=== PATIENT | female | born 1960 | race Caucasian/White ===

== ENCOUNTER → 2017-03-25 | Outpatient (CLI) | payer MEDICARE, OTHER ==
[~2017-03-25] MED LIST: AMOX TR-K CLV1 EAC2 PO; BACTRIM DS TAB1 EACH PO; CIPRO500 MG PO; FENTANYL CITRATE/PF 100MCG/2 ML INJ ONE; GABAPENTIN400 MG PO; HUMALOG100 UNIT/1; LANTUS100 UNITS/ SC; LOSARTAN POTASS25 MG PO; MELOXICAM15 MG PO; METFORMIN HCL500 MG PO; MIDAZOLAM HCL 2 MG/2 ML VIAL ONE; MIRAPEX0.125 MG PO; RIFAMPIN300 MG PO; SIMVASTATIN20 MG PO; SODIUM CHLORIDE 0.9% 500ML 1,000 ML ONE
--- NOTE | 2017-03-25 12:43 | Diagnostic Imaging Report ---
EXAMINATION: MRI of the cervical spine without contrast HISTORY: Cervical spinal canal stenoses, numbness in the upper extremities/hands for over a year COMPARISON: Cervical spine MRI and 05/13/2015 TECHNIQUE: Sagittal T1, T2, STIR; axial T2, gradient echo. FINDINGS: Curvature: Normal lordosis. Vertebrae: No evidence of neoplasm, infection, or fracture. Foramen magnum: No mass, Chiari malformation, or basilar invagination. Spinal Cord: Subtle increased T2 signal intensity within the cord extending from superior endplate of C5 to mid C7 due to severe canal stenosis and chronic cord compression, worsened since prior MRI and 05/13/2015 Soft Tissues: Unremarkable. Degenerative changes: C1-C2: Mild degenerative changes without stenoses C2-C3: Bilateral facet arthrosis without significant stenoses. Fusion of the posterior elements on the right side. C3-C4: Disc osteophyte, uncovertebral and facet arthrosis. Moderate spinal canal and severe left foraminal stenosis. Mild right foraminal stenoses C4-C5: Disc was 25 compare formation, bilateral uncovertebral and facet arthrosis. Mild spinal canal, mild right and severe left foraminal stenoses C5-C6: Disc osteophyte complex formation, bilateral uncovertebral and facet arthrosis. Moderate spinal canal and moderate bilateral foraminal stenoses C6-C7: Disc osteophyte complex formation and new approximately 5 mm AP diameter central disc protrusion, which results in severe spinal canal stenoses and or compression. Additional bilateral uncovertebral and facet arthrosis results in severe bilateral foraminal stenoses. C7-T1: Mild symmetric disc bulge and facet arthrosis without significant stenoses. IMPRESSION: 1. Worsening severe spinal canal stenoses at C6-C7 due to degenerative changes and new disc herniation with likely chronic cord compression and increased signal within the cord, which likely explains the patient's symptoms. A neurosurgery or orthopedic consult is advised. 2. Persistent severe degenerative bilateral foraminal stenosis at C6-7. 3. Mild to moderate degenerative spinal canal stenosis at C3-C4, C4-C5 and C5-C6. 4. Severe degenerative foraminal stenosis on the left at C3-C4 and C4-C5 and moderate bilaterally at C5-C6. Signed by: Dr. Kayce Morton M.D. on 03/25/2017 12:40 PM
== END ==
LOC: MRI 09:42
PROVIDERS: ATTEND Psychiatry & Neurology Clinical Neurophysiology
DX: M48.02 Spinal stenosis, cervical region (principal)
CPT/HCPCS: 36415; 72141; 82948; J2250; J7040

== ENCOUNTER → 2018-03-29 | Outpatient (CLI) | payer MEDICARE, OTHER ==
[~2018-03-29] MED LIST changes: +LIDOCAINE HCL 2% LOCAL INJ 5 ML SDV VIAL INJ ONE; +PROPOFOL IV EMULSION 10 MG/ML 20 ML VIAL ONE
--- NOTE | 2018-03-29 15:26 | Diagnostic Imaging Report ---
Exam: Cervical spine MRI without IV contrast History: Chronic neck pain Comparison studies: Cervical spine MRI 03/25/2017, 05/13/2015 and 12/11/2013. Technique: Sagittal and axial T1 and T2, sagittal STIR and axial T2*GRE. Intravenous contrast: None Findings: Alignment: Normal lordosis. No scoliosis. Cervicomedullary junction: No abnormalities. Patent foramen magnum. Soft tissues: No T2 hyperintense inflammatory changes. Spinal cord: Cord is focally compressed at C6-C7 due to degenerative canal stenosis as described below with persistent increased T2 signal changes in the cord from C5 to approximately mid C7, unchanged from 03/25/2017. Vertebrae: No fractures, infection or neoplasm. Degenerative changes: C2-C3: Mildly degenerated disc. Bilateral facet arthrosis with right facet fusion. No significant foraminal stenosis. Patent canal. C3-C4: Mildly degenerated disc. Disc osteophyte complex, thickened ligamentum flavum, uncovertebral arthrosis and facet arthrosis with moderate canal stenosis and severe left and mild right foraminal stenosis. C4-C5: Mildly degenerated disc. Disc osteophyte complex, thickened ligamentum flavum, uncovertebral arthrosis and facet arthrosis with mild to moderate canal stenosis and severe left and mild right foraminal stenosis. C5-C6: Moderately degenerated disc with mild reactive degenerative endplate edema. Disc osteophyte complex, uncovertebral arthrosis and facet arthrosis with mild to moderate canal canal stenosis and moderate left and mild right foraminal stenosis. C6-C7: Moderately degenerated disc with mild reactive degenerative endplate edema. 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 Uncovertebral facet arthrosis result in severe bilateral foraminal stenosis. C7-T1: Mild bilateral facet arthrosis. Patent canal and foramina. Incidental findings: Chronic inflammatory changes at the right mastoid tip. IMPRESSION: No significant changes from the prior cervical spine MRI of 03/25/2017. 1. Multilevel disc degeneration, worse/moderate at C5-C6 and at C6-C7. 2. Persistent severe degenerative canal stenosis and cord compression at C6-C7 where there is a central disc extrusion and OPLL superior to the disc space with associated chronic cord signal changes. 3. Moderate degenerative canal stenosis at C3-C4 and mild to moderate canal stenosis at C4-C5 and at C5-C6. 4. Multilevel degenerative foraminal stenosis; severe left at C3-C4 and at C4-C5, moderate left at C5-C6 and severe bilaterally at C6-C7. Signed by: Dr. Vance Seay M.D. on 03/29/2018 3:22 PM
== END ==
LOC: MRI 12:00
PROVIDERS: ATTEND Psychiatry & Neurology Clinical Neurophysiology
DX: M48.02 Spinal stenosis, cervical region (principal)
CPT/HCPCS: 72141; J2001; J2250; J2704; J7040

== ENCOUNTER → 2019-04-11 | Outpatient (CLI) | payer MEDICARE, OTHER ==
[~2019-04-11] MED LIST changes: -FENTANYL CITRATE/PF 100MCG/2 ML INJ ONE; -LIDOCAINE HCL 2% LOCAL INJ 5 ML SDV VIAL INJ ONE; -MIDAZOLAM HCL 2 MG/2 ML VIAL ONE; -PROPOFOL IV EMULSION 10 MG/ML 20 ML VIAL ONE; -SODIUM CHLORIDE 0.9% 500ML 1,000 ML ONE
== END ==
LOC: MAMMO 10:45
PROVIDERS: ATTEND Radiology Body Imaging
DX: Z12.31 Encounter for screening mammogram for malignant neoplasm of breast (principal)
CPT/HCPCS: 77067

== ENCOUNTER 2019-10-01 11:50 | Emergency (ER) | payer OTHER ==
[~2019-10-01] VITALS: Ht 167.6 cm; Wt 84.8 kg
--- OUTSIDE RECORDS SUMMARY | 2019-10-01 12:04 | XMS REPORT ---
Author Author Admin, Joselin Saenz Organization Unknown Address Unknown Phone Unavailable PROBLEMS Condition Status Date Provider Notes Smoker active Antonio Tinsley BMI 37.0-37.9 active Ismael Mcgee Poor dentition active Antonio Tinsley Diabetic peripheral neuropathy active Antonio arevalo Diabetes mellitus, type II active Antonio mendoza ENCOUNTERS Date Type Provider Location Encounter Diagn osis - Ambulatory Encounter Renee Ortiz [facility] UNK - [facility] - [facility] Encounter Antonio Tinsley [facility] UNK - Ambulatory [facility] - [facility] Ambulatory Encounter Antonio Tinsley [facility] UNK - [facility] - [facility] - Ambulatory Encounter Antonio Tinsley [facility] UNK - Ambulatory Encounter Antonio Guevara Mcgee Renustefan Mcgee [facility] Smoker - Ambulatory [facility] - Ambulatory Encounter Antonio Tinsley [facility] K - Ambulatory Encounter Antonio Smith [facility] UNK - [facility] Antonio Guevara Mcgee [facility] BMI 37.0-37.9 - [facility] En[facility] Antonio Tinsley [facility] K - Ambulatory Encounter Angi Angel [facility] Practice K - Ambulatory Encounter Antonio Guevara Mcgee [facility] Practice Diabetes mellitus, type IIDiabetic peripheral neuropathyPoor dentition VITAL SIGNS No Information Available ALLERGIES Allergy Name Onset Date Reaction Criticality Status ZOFRAN High Criticality active REASON FOR REFERRAL No Information Available RESULTS Date Observation Value Provider Reference Range Interpretati on Location immature granulocytes, percentage of total cells , blood 0 % [facility] Not Estab. " basophil count, absolute 0.0 x10E3/uL [facility] 0.0-0.2 " Eosinophil Absolute Count 0.5 X10E3/UL [facility] 0.0-0.4 High " monocyte count, blood, automated 0.4 X10E3/UL [facility] 0.1 -0.9 " lymphocyte count, blood, automated 2.6 X10E3/UL [facility] 0 .7-3.1 " Absolute Neutrophils 4.4 X10E3/UL [facility] 1.4-7.0 " basophils as percent of blood leukocytes 0 % [facility] Not Estab. " eosinophils as percent of blood leukocytes 6 % [facility] Not Estab. " monocytes as percent of blood leukocytes 5 % [facility] Not Estab. " lymphocytes as percent of blood leukocytes 33 % [facility] Not Estab. " neutrophils as percent of blood leukocytes 56 % [facility] Not Estab. " platelet count 221 X10E3/UL [facility] 150-379 " red blood cell distribution width 14.7 % [facility] 12.3- 15.4 " mean corpuscular hemoglobin concentration, RBC 31.9 G/DL [facility] 31.5-35.7 " mean corpuscular hemoglobin, RBC 27.3 pg [facility] 26.6-3 3.0 " mean corpuscular volume, RBC 86 fL [facility] 79-97 " hematocrit, blood 34.8 % [facility] 34.0-46.6 " hemoglobin, blood 11.1 g/dL [facility] 11.1-15.9 " erythrocyte (RBC) count 4.07 X10E6/UL [facility] 3.77-5.28 " leukocyte count, blood 7.9 X10E3/UL [facility] 3.4-10.8 prothrombin time (patient) 10.0 s [facility] 9.1-12.0 " international normalized ratio (INR) 1.0 [facility] 0. 8-1.2 " alanine aminotransferase (SGPT), serum 11 1/L [facility] 0-32 " aspartate aminotransferase (SGOT), serum 17 1/L [facility] 0-40 " alkaline phosphatase, serum 95 1/L [facility] 39-117 " bilirubin, serum, total 0.3 mg/dL [facility] 0.0-1.2 " albumin/globulin ratio, serum 1.3 [facility] 1.2-2.2 " globulin, serum 3.2 [facility] 1.5-4.5 " albumin, serum 4.0 g/dL [facility] 3.5-5.5 " protein, total, serum 7.2 g/dL [facility] 6.0-8.5 " calcium, serum 9.3 mg/dL [facility] 8.7-10.2 " carbon dioxide, venous blood 26 mmol/L [facility] 18-29 " chloride, serum 100 mmol/L [facility] 96-106 " potassium, serum 4.6 mmol/L [facility] 3.5-5.2 " sodium, serum 142 mmol/L [facility] 134-144 " urea nitrogen/creatinine ratio, serum 21 [facility] 9 -23 " eGFR if 99 mL/min/((173/100).m2) [facility] >59 " Estimated Glomerular Filtration Rate (calc) 86 m L/min/((173/100).m2) [facility] >59 " creatinine, serum 0.78 mg/dL [facility] 0.57-1.00 " urea nitrogen, blood 16 mg/dL [facility] 6-24 " blood glucose, random 144 mg/dL [facility] 65-99 High " immature granulocytes, percentage of total cells, bloo d 0 % [facility] Not Estab. " basophil count, absolute 0.0 x10E3/uL [facility] 0.0-0.2 " Eosinophil Absolute Count 0.4 X10E3/UL [facility] 0.0-0.4 " monocyte count, blood, automated 0.4 X10E3/UL [facility] 0.1 -0.9 " lymphocyte count, blood, automated 2.2 X10E3/UL [facility] 0 .7-3.1 " Absolute Neutrophils 3.4 X10E3/UL [facility] 1.4-7.0 " basophils as percent of blood leukocytes 0 % [facility] Not Estab. " eosinophils as percent of blood leukocytes 7 % [facility] ic Not Estab. " monocytes as percent of blood leukocytes 6 % [facility] Not Estab. " lymphocytes as percent of blood leukocytes 34 % [facility] Not Estab. " neutrophils as percent of blood leukocytes 53 % [facility] ic Not Estab. " platelet count 225 X10E3/UL [facility] 150-379 " red blood cell distribution width 15.4 % [facility] 12.3- 15.4 " mean corpuscular hemoglobin concentration, RBC 32.0 G/DL [facility] 31.5-35.7 " mean corpuscular hemoglobin, RBC 26.8 pg [facility] 26.6-3 3.0 " mean corpuscular volume, RBC 84 fL [facility] 79-97 " hematocrit, blood 35.6 % [facility] 34.0-46.6 " hemoglobin, blood 11.4 g/dL [facility] 11.1-15.9 " erythrocyte (RBC) count 4.26 X10E6/UL [facility] 3.77-5.28 " leukocyte count, blood 6.4 X10E3/UL [facility] 3.4-10.8 HISTORY OF IMMUNIZATIONS No Information Available Medications No Known Medication Information SOCIAL HISTORY Date Observation Value Provider Exercise Program Referral T Renu Mcgee " Weight Management Counseling Provided T " Nutrition intervention T " passive cigarette smoke exposure No Debora Mcgee " drug use, illicit Never Deborath Gerardo dos " smoking status current every day smoker Deborat h Mcgee " alcohol use Never Deborath Shaun s " social history reviewed E&M reviewed today Julieta rath Mcgee " is there any chance that you could be ? No Debora Mcgee " assessment of health literacy ([facility] 3C10) Adequate Debora Mcgee Exercise Program Referral T Renu Mcgee " Weight Management Counseling Provided T Deb Mcgee " Nutrition intervention T " drug use, illicit Never Deborath Gerardo dos " alcohol use Never Deborath Shaun s " social history reviewed E&M reviewed today Julieta rath Mcgee " is there any chance that you could be ? No Debora Mcgee " assessment of health literacy ([facility] [address] [facility], 3C10) Adequate Debora Mcgee " passive cigarette smoke exposure No Deb Mcgee " smoking status current every day smoker Deborat h Mcgee drug use, illicit Never Deborath Gerardo dos " alcohol use Never Deborath Shaun s " social history reviewed E&M reviewed today Julieta rath Mcgee " is there any chance that you could be ? No Debora Mcgee " passive cigarette smoke exposure No Deborath Mcgee " smoking status current every day smoker Deborat h Mcgee " assessment of health literacy ([facility] 2013 [facility], 3C10) Adequate Deborath Mcgee Exercise Program Referral T Renu Mcgee " Weight Management Counseling Provided T Avril[place]ada Mcgee " Nutrition intervention T [place] " drug use, illicit Never [place] Gerardo dos " alcohol use Never [place] Shaun s " Occupation #1 Disabled Avrilaguadastefan Mustafaado s " patient considered to be homeless No [facility] Mcgee " is there any chance that you could be ? No Avrilaguada Mcgee " passive cigarette smoke exposure No [facility] " smoking, advice to quit Yes Avrilaguadastefan Mcgee " smoking status current every day smoker Renut h Mcgee " assessment of health literacy ([employer] [facility] [address], 3C10) Adequate [facility] FUNCTIONAL STATUS No Information Available MENTAL STATUS Date Observation Value Provider assessment of judgment and insight E&M intact Antonio Tinsley " mental status examination: orientation E &M oriented to time, place, and person Antonio Tinsley " assessment of mood and affect E&M no depression, anxiety, or agitation Antonio Tinsley " Generalized Anxiety Disorder Questionnaire - Que stion 2 0 [facility] " Generalized Anxiety Disorder Questionnaire - Que stion 1 0 [facility] assessment of judgment and insight E&M intact Antonio Tinsley " mental status examination: orientation E &M oriented to time, place, and person Antonio Tinsley " assessment of mood and affect E&M no depression, anxiety, or agitation Antonio Tinsley " Generalized Anxiety Disorder Questionnaire - Que stion 2 0 [facility] " Generalized Anxiety Disorder Questionnaire - Que stion 1 0 [facility] assessment of judgment and insight E&M intact Antonio Tinsley " mental status examination: orientation E &M oriented to time, place, and person Antonio Arash Tinsley " assessment of mood and affect E&M no depression, anxiety, or agitation Antonio Tinsley " Generalized Anxiety Disorder Questionnaire - Que stion 2 0 [facility] " Generalized Anxiety Disorder Questionnaire - Que stion 1 0 [facility] assessment of judgment and insight E&M intact Antonio Tinsley " mental status examination: orientation E &M oriented to time, place, and person Antonio Arash Tinsley " assessment of mood and affect E&M no depression, anxiety, or agitation Antonio Tinsley " Generalized Anxiety Disorder Questionnaire - Que stion 2 0 [facility] " Generalized Anxiety Disorder Questionnaire - Que stion 1 0 Ismael Mustafaados MEDICAL EQUIPMENT No Information Available FAMILY HISTORY No Information Available INSURANCE PROVIDERS No Information Available ADVANCE DIRECTIVES No Information Available TREATMENT PLAN Date Name CBC With Differential/Platel et Comp. Metabolic Panel (14) CBC With Differential/Platel et Prothrombin Time (PT) with I NR Est Patient Exp Problem - 99 213 Est Patient Exp Problem - 99 213 Est Patient Exp Problem - 99 213 Est Patient Exp Problem - 99 213 HISTORY OF PROCEDURES No Information Available GOALS No Information Available HEALTH CONCERNS No Information Available
--- OUTSIDE RECORDS SUMMARY | 2019-10-01 12:04 | XMS REPORT | Continuity of Care Document ---
Author Author [facility] t Organization [facility] Address [address] [place] [address] Phone Unavailable Care Team Providers Care Music Therapy Specialist Name Role Phone AWA LOUIS Attphys Unavailable Renee Bowman Attphys Angel MedShraddha Maier Attphys Arash [place] Attphys Everardo Deborath Attphys Unavailable RONNIE MATA Attphys Unavailable Angi Ortiz Attphys Unavailable Arash Tinsley Unavailable Ismael Mcgee Unavailable Unavailable Problems Condition Name Condition Details Condition Category Status Onset Date Resolution Date Last Treatment Date Treating Clinician Comments Source Smoker Condition Active 2017-10-15 00:00:00 2017-10-15 11:43:47 Antonio Tinsley [facility] BMI 37.0-37.9 Condition Active 2017-05-28 00:00:00 2017 13:58:15 Ismael Mcgee [facility] Poor dentition Condition Active 2017-04-19 00:00:[address] [facility] 09-23-25 15:31:57 Antonio Tinsley [facility] Diabetic peripheral neuropathy Condition Active 2017-03-26 00:00:00 2017-04-19 15:31:57 Antonio Tinsley [facility] Diabetes mellitus, type II Condition Active 2017-04-19 00 :00:00 2017-04-19 15:31:57 Antonio Tinsley [facility] Migraine with aura, without mention of i ntractable migraine without mention of status migrainosus Migraine with aura, without mention of i ntractable migraine without mention of status migrainosus Disease Active 2014-04-30 00:00:00 [facility] Type II or unspecified type diabetes narayan litus with ophthalmic manifestations, not stated as uncontrolled(250.50) Type II or unspecified type diabetes narayan litus with ophthalmic manifestations, not stated as uncontrolled(250.50) Disease Active 2014-04-30 00:00:00 [facility] Status post amputation of toe of right foot Status pos t amputation of toe of right foot Disease Active 2012-03-13 00:00:00 [facility] Diabetic retinopathy Diabetic retinopathy Disease Active 00:00:00 [facility] Traumatic amputation of toe(s) (complete ) (partial), without mention of complication Traumatic amputation of toe(s) (complete ) (partial), without mention of complication Disease Active 2012-03-05 00:00:00 [facility] Occluded PICC line Occluded PICC line Disease Active 2012-02-16 00:00:0 0 [facility] Diabetes mellitus with ulcer of toe Diabetes mellitus with ulcer of toe Disease Active 2012-01-19 00:00:00 [facility] Type II or unspecified type diabetes narayan litus with neurological manifestations, uncontrolled(250.62) Type II or unspecified type diabetes narayan litus with neurological manifestations, uncontrolled(250.62) Disease Active 2012-01-09 00:00:00 [facility] Osteomyelitis of foot Osteomyelitis of foot Disease Active 04-04-13 00:00:00 [facility] S/P PICC central line placement S/P PICC central line placement Dis ease Active 2012-01-05 00:00:00 [facility] Wound, open, foot with complication Wound, open, foot with compl ication Disease Active 2011-12-30 00:00:00 [facility] Avascular necrosis Avascular necrosis Disease Active 2011-06-19 00:00:0 0 [facility] Charcot foot due to diabetes mellitus Charcot foot due to di abetes mellitus Disease Active 2010-12-26 00:00:00 [facility] Diabetic neuropathy Diabetic neuropathy Disease Active 2010-06-13 00:00 :00 [facility] Diabetic foot ulcer Diabetic foot ulcer Disease Active 2010-06-13 00:00 :00 [facility] Uterine cancer Uterine cancer Disease Active 2008-11-21 00:00:00 Overview: Diagnosed at outside institution..stage unclear [facility] Personal history of ovarian cancer Personal history of ovarian c ancer Disease Active 2008-11-21 00:00:00 Overview : Diagnosed outside institution...stage unclear [facility] Tobacco use disorder Tobacco use disorder Disease Active 00:00:00 [facility] HTN (hypertension) HTN (hypertension) Disease Active [facility] Obesity Obesity Disease Active [facility] Nausea & vomiting Nausea & vomiting Disease Active Overview: CT= [facility] Allergies, Adverse Reactions, Alerts Allergy Name Allergy Type Status Severity Reaction(s) Onset Date Inacti ve Date Treating Clinician Comments Source ZOFRAN Drug allergy (disorder) Active High Criticality 2017-03 00:00:00 [facility] Ondansetron Hcl (Pf) Propensity to adverse reactions to drug Active Nausea and Vomiting 2008-11-21 00:00:00 dizziness [facility] Family History Family Member Diagnosis Comments Start Date Stop Date Source Natural brother [facility] Natural father [facility] Natural [facility] Natural father [facility]pertension [facility] Maternal grandmother [facility] Natural mother [facility] Natural mother [facility] Natural mother Hypertension [facility] Natural mother Stroke [facility] Social History Social Habit Start Date Stop Date Quantity Comments Source History of tobacco use Cigarette Smoker [facility] Sex Assigned At [facility] drug use, illicit 2018-04-12 11:49:40 2018-04-12 11:49:40 Never [facility] alcohol use 2018-04-12 11:49:40 2018-04-12 11:49:40 Never [facility] is there any chance that you could be ? 2018-04-12 1 1:49:40 2018-04-12 11:49:40 No [facility] passive cigarette smoke exposure 2018-04-12 11:49:40 2018-04-12 11:49 :40 No [facility] assessment of health literacy ([employer] [facility] 2014 Standard s, 3C10) 2018-04-12 11:49:40 2018-04-12 11:49:40 Adequate On license of [facility] social history reviewed E&M 2018-04-12 11:49:40 2018-04-12 11:49 :40 reviewed today [facility] Occupation #1 2017-04-19 14:10:16 2017-04-19 14:10:16 Disabled [facility] patient considered to be homeless 2017-04-19 14:10:16 2017-04-19 14:1 0:16 No [facility] smoking, advice to quit 2017-04-19 14:10:16 2017-04-19 14:10:16 Yes [facility] Cigarettes smoked current (pack per day) - Reported 00:00:00 2014-08-23 00:00:00 [facility] Cigarette pack-years 2014-08-23 00:00:00 2014-08-23 00:00:00 [facility] Alcohol intake 2014-08-23 00:00:00 2014-08-23 00:00:00 Current non-drinker of alcohol (finding) [facility] Tobacco Comment 2008-11-21 00:00:00 2008-11-21 00:00:00 STARTED SMOKING AT 10YEARS OF AGE decreased 1/2ppd X 05/31, from 2-3ppd [facility] Smoking Status Start Date Stop Date Source Current every day smoker 2014-08-23 00:00:00 [facility] Medications Ordered Medication Name Filled Medication Name Start Date Stop Da te Current Medication? Ordering Clinician Indication Dosage Frequency Signature (SIG) Comments Components Source insulin lispro (HUMALOG) 100 unit/mL injection 2014-08-10 10:23: 38 Yes 20U Inject 20 Units under the skin 3 times daily. [facility] insulin glargine (LANTUS) 100 unit/mL injection 2014-08-10 10:23 :38 Yes 60U Inject 60 Units under the skin at bedtime nightly. [facility] metFORMIN (GLUCOPHAGE) 500 mg tablet 2014-08-10 10:23:38 Ye s 1000mg Take 1,000 mg by mouth 2 times daily (with meals). [facility] Miscellaneous Medical Supply Misc 2014-08-10 00:00:00 Yes Wound, open, foot with complication Patient needing m otorized scooter for mobility as she is to take weight off her right foot with non healing ulcer. [facility] mupirocin (BACTROBAN) 2 % ointment 2014-08-10 00:00:00 Yes Diabetic foot ulcer Apply a small amount to wound daily and cover w ith gauze. [facility] rifampin (RIFADIN) 300 mg capsule 2014-06-27 00:00:00 Yes Chronic osteomyelitis of foot 600mg QD Take 2 capsules by mouth daily. [facility] Insulin REGULAR CONCENTRATED (HUMULIN R CONCENTRATED) 500 un it/mL injection 2013-07-20 00:00:00 Yes Use 43 units in am and 40 units at night. [facility] Cadexomer Iodine (IODOSORB) 0.9 % topical gel 2013-05-05 00: 00:00 Yes Diabetic foot ulcer Apply to affected area daily as needed for Wound Care. [facility] insulin needles, disposable, (NOVOFINE) 30 x 1/3 " needles 2013-04-27 00:00:00 Yes DM (diabetes mellitus), type 2, uncontro lled 4{syringe} QD Inject 4 Syringes under the skin daily Inject subcutaneously. Twice daily. [facility] acetaminophen-codeine (TYLENOL #3) 300-30 mg per tablet 2013-04-27 00:00:00 Yes Diabetic foot ulcer with osteomyelitis 1{tbl} Take 1 tablet by mouth every 4 hours as needed for Pain. [facility] nortriptyline (PAMELOR) 25 mg capsule 2013-04-04 00:00:00 Yes Diabetic neuropathy 25mg Take 1 capsule by mouth at bedtime nightly. [facility] glyBURIDE-metFORMIN (GLUCOVANCE) 5-500 mg per tablet 2 00:00:00 Yes DM (diabetes mellitus) 2{tbl} Take 2 tablets by mouth 2 times daily (with meals). [facility] CAPSAICIN 0.025 % topical cream 2013-03-07 00:00:00 Yes Diabetic neuropathy Apply up to 4 times day. [facility] pramipexole (MIRAPEX) 0.125 mg tablet 2013-03-07 00:00:00 Yes Diabetic neuropathy .125mg Take 1 tablet by mouth at bedtime. [facility] Cadexomer Iodine (IODOSORB) 0.9 % topical gel 2013-03-07 00: 00:00 Yes Diabetic foot ulcer Apply to affected area daily as needed for Wound Care. [facility] gemfibrozil (LOPID) 600 mg tablet 2013-03-07 00:00:00 Yes HLD (hyperlipidemia) 600mg Q.5D Take 1 tablet by vibha th 2 times daily (before meals). [facility] ergocalciferol (VITAMIN D2) 50,000 unit capsule 2013-03-07 0 0:00:00 Yes Vitamin D deficiency 71545U Take 1 capsule by mouth weekly. [facility] blood glucose test strips 2013-03-07 00:00:00 Yes DM (diabetes mellitus) Check BG 4 times weekly. [facility] omeprazole (PRILOSEC) 20 mg delayed release capsule 03-07 00:00:00 Yes GERD (gastroesophageal reflux disease) 40mg Q.5D Take 2 capsules by mouth 2 times daily. [facility] gabapentin (NEURONTIN) 300 mg capsule 2013-03-07 00:00:00 Yes Diabetic neuropathy 1 po tid. [facility] lisinopril (PRINIVIL, ZESTRIL) 20 mg tablet 2013-03-07 00:00 :00 Yes HTN (hypertension) 20mg QD Take 1 tablet by mouth daily. [facility] simvastatin (ZOCOR) 20 mg tablet 2013-03-07 00:00:00 Yes HLD (hyperlipidemia) 20mg Take 1 tablet by mouth at bedtime. [facility] furosemide (LASIX) 20 mg tablet 2013-03-07 00:00:00 Yes Edema 20mg QD Take 1 tablet by mouth daily. [facility] LANCETS 2013-03-07 00:00:00 Yes Uncontrolled type II diabetes mellitus Use as Directed. [facility] blood glucose test (PRECISION XTRA TEST STRIPS) strips 2013-03-07 00:00:00 Yes Uncontrolled type II diabetes mellitus Use as di rected.. [facility] blood glucose meter 2012-12-13 00:00:00 Yes DM (d iabetes mellitus) Use as directed. [facility] HYDROcodone-acetaminophen (NORCO) 5-325 mg tablet 2012-11-23 00:00:00 Yes Osteomyelitis 1{tbl} Take 1 tablet by mouth every 4 h ours as needed for Pain. [facility] Immunizations Ordered Immunization Name Filled Immunization Name Date Status Comments Source Influenza Vaccine 2011-10-24 00:00:00 Completed [facility] Influenza Vaccine 2010-11-16 00:00:00 Completed [facility] Influenza Vaccine 2008-03-25 00:00:00 Completed [facility] PPV 23 Pneumococcal Polysaccaride 2008-01-22 00:00:00 Comp leted [facility] Td Tetanus, diphtheria Toxoids Vaccine 2005-11-21 00:00:00 Completed [facility] Procedures This patient has no known procedures. Plan of Care Planned Activity Planned Date Details Comments Source Future Scheduled Test 2019-04-23 00:00:00 Screening for aidan gnant neoplasm of colon (procedure) [code = 798891801] [facility] Scheduled Test 2015-05-01 00:00:00 DM Retinal Exam (Y early) [code = DM Retinal Exam (Yearly)] [facility] Scheduled Test 2014-04-27 00:00:00 Hemoglobin A1c jolynn surement (procedure) [code = 38152003] [facility] Scheduled Test 2013-11-07 00:00:00 Breast Cancer Scrn (Yearly) [code = Breast Cancer Scrn (Yearly)] [facility] Scheduled Test 2013-08-05 00:00:00 DM Foot Exam (Year ly) [code = DM Foot Exam (Yearly)] [facility] Encounters Start Date/Time End Date/Time Encounter Type Admission Type [facility] Care Department Encounter ID Source 2019-01-26 00:00:00 2019-01-26 00:00:00 Office Visit Renee Canales [facility] Encounter/[id number] [facility] 2018-09-14 00:00:00 2018-09-14 00:00:00 Office Visit Antonio Tinsley [facility] Encounter/[id number] [facility] 2018-06-15 00:00:00 2018-06-15 00:00:00 Office Visit Antonio Tinsley [facility] Encounter/[id number] [facility] 2018-04-13 00:00:00 2018-04-13 00:00:00 Office Visit Antonio Tinsley [facility] Encounter/[id number] [facility] 2018-04-12 00:00:00 2018-04-12 00:00:00 Office Visit Antonio Tinsley [facility] Encounter/[id number] [facility] 2018-04-12 00:00:00 2018-04-12 00:00:00 Office Visit Antonio Tinsley [facility] Encounter/[id number] [facility] 2018-04-12 00:00:00 2018-04-12 00:00:00 Office Visit Antonio Solo Deborath [facility] Encounter/[id number] [facility] 2018-01-25 00:00:00 2018-01-25 00:00:00 Office Visit [facility][id number] [facility] 2017-10-15 00:00:00 2017-10-15 00:00:00 Office Visit [facility] Encounter/[id number] [facility] 2017-10-15 00:00:00 2017-10-15 00:00:00 Office Visit Antonio Solo Deborath [facility] Encounter/[id number] [facility] 2017-06-29 00:00:00 2017-06-29 00:00:00 Office Visit Antonio Tinsley [facility] Encounter/[id number] [facility] 2017-06-08 00:00:00 2017-06-08 00:00:00 Office Visit Antonio Tinsley [facility] Encounter/[id number] [facility] 2017-05-28 00:00:00 2017-05-28 00:00:00 Office Visit Antonio Tinsley [facility] Encounter/[id number] [facility] 2017-05-28 00:00:00 2017-05-28 00:00:00 Office Visit Antonio Tinsley [facility] Encounter/[id number] [facility] 2017-05-28 00:00:00 2017-05-28 00:00:00 Office Visit Antonio Solo Deborath [facility] Encounter/[id number] [facility] 2017-04-19 00:00:00 2017-04-19 00:00:00 Office Visit Antonio Tinsley [facility] Encounter/[id number] [facility] 2017-04-19 00:00:00 2017-04-19 00:00:00 Office Visit Antonio [facility]insley [facility] Encounter/[id number] [facility] 2017-04-19 00:00:00 2017-04-19 00:00:00 Office Visit Angi Steiner [facility] Encounter/[id number] [facility] 2017-04-19 00:00:00 2017-04-19 00:00:00 Office Visit Antonio Solo Deborath [facility] Encounter/[id number] [facility] 2017-03-29 00:00:00 2017-03-29 00:00:00 Office Visit Antonio Tinsley [facility] Encounter/[id number] [facility] Results Test Description Test Time Test Comments Results Result Comments Source MAMMOGRAPHY DIGITAL SCR BILAT 2019-04-11 11:58:00 [place] [address] Patient Name: LAURA LUX MR #: [id number] : 1960 Age/Sex: 58/F Req #: [id number] Adm Physician: Ordered by: AWA LOUIS MD Report #: [id number] Location: MAMMO Room/Bed: Procedure: [id number] MG/MAMMOGRAPHY DIGITAL SCR BILAT Exam Date: 04/11/19 Exam Time: 1050 REPORT STATUS: Signed #[id number] - [id number] #BILATERAL DIGITAL SCREENING MAMMOGRAM WITH CAD: 04/11/2019 CLINICAL: Routine screening. No prior exams were available for comparison. The tissue of both breasts is heterogeneously dense. This may lower the sensitivity of mammography. Current study was also evaluated with a Computer Aided Detection (CAD) system. There are benign calcifications in both breasts. There also is a benign lymph node in the right breast. No significant masses, calcifications, or other findings are seen in either breast. IMPRESSION: BENIGN There is no mammographic evidence of malignancy. A 1 year screening mammogram is recommended. The patient will be notified by letter of the results. MAURICIO herny/rachel:04/25/2019 09:54:12 Brick Paver: Dorene RUTLEDGE(R)(M), [facility] letter sent: Normal Exam Mammogram BI-RADS: 2 Benign Dictated By: MAURICIO ORDOÑEZ MD 3 Transcribed By: RACHEL on 04/25/19953 COPY TO: AWA LOUIS MD immature granulocytes, percentage of total cells, blood 2018 14:36:00 Test Item immature granulocytes, percentage of total cells, bloo d (test code = 340332) 0 % [facility], [id number] 14:36:00* Test Item Value Reference Range Interpretation Comments basophil count, absolute (test code = 95235) 0.0 x10E3/uL 0.0-0.2 [facility] Absolute [id number] 14:36:00* Test Item Value Reference Range Interpretation Comments Eosinophil Absolute Count (test code = 049122) 0.5 X10E3/UL 0.0-0.4 H [facility]ocyte count, blood, [id number] 14:36:00* Test Item Value Reference Range Interpretation Comments monocyte count, blood, automated (test code = 3076) 0.4 X10E3/UL 0. 1-0.9 [facility] count, blood, [id number] 14:36:00* Test Item Value Reference Range Interpretation Comments lymphocyte count, blood, automated (test code = 3074) 2.6 X10E3/UL 0.7-3.1 [facility] [id number] 14:36:00* Test Item Value Reference Range Interpretation Comments Absolute Neutrophils (test code = 12152) 4.4 X10E3/UL 1.4-7.0 [facility] as percent of blood [id number] 14:36:00* Test Item Value Reference Range Interpretation Comments basophils as percent of blood leukocytes (test code = 2426) 0 % [facility] percent of blood [id number] 14:36:00* Test Item Value Reference Range Interpretation Comments eosinophils as percent of blood leukocytes (test code = 4170) 6 % [facility] blood [id number] 14:36:00* Test Item Value Reference Range Interpretation Comments monocytes as percent of blood leukocytes (test code = 2421) 5 % [facility] as percent of blood [id number] 14:36:00* Test Item Value Reference Range Interpretation Comments lymphocytes as percent of blood leukocytes (test code = 317) 33 % [facility]rophils as percent of blood [id number] 14:36:00* Test Item Value Reference Range Interpretation Comments neutrophils as percent of blood leukocytes (test code = 316) 56 % [facility]let [id number] 14:36:00* Test Item Value Reference Range Interpretation Comments platelet count (test code = 66) 221 X10E3/UL 150-379 [facility] blood cell distribution [id number] 14:36:00* Test Item Value Reference Range Interpretation Comments red blood cell distribution width (test code = 1030) 14.7 % 1 2.3-15.4 [facility] corpuscular hemoglobin concentration, [id number] 14:36:00* Test Item Value Reference Range Interpretation Comments mean corpuscular hemoglobin concentration, RBC (test code = 1029) 31.9 G/DL 31.5-35.7 [facility] corpuscular hemoglobin, [id number] 14:36:00* Test Item Value Reference Range Interpretation Comments mean corpuscular hemoglobin, RBC (test code = 1031) 27.3 pg 26 .6-33.0 [facility] corpuscular volume, [id number] 14:36:00* Test Item Value Reference Range Interpretation Comments mean corpuscular volume, RBC (test code = 315) 86 fL 79-97 [facility], [id number] 14:36:00* Test Item Value Reference Range Interpretation Comments hematocrit, blood (test code = 64) 34.8 % 34.0-46.6 [facility]oglobin, [id number] 14:36:00* Test Item Value Reference Range Interpretation Comments hemoglobin, blood (test code = 65) 11.1 g/dL 11.1-15.9 [facility]th[facility] (RBC) [id number] 14:36:00* Test Item Value Reference Range Interpretation Comments erythrocyte (RBC) count (test code = 67) 4.07 X10E6/UL 3.77-5.28 [facility]ukocyte count, [id number] 14:36:00* Test Item Value Reference Range Interpretation Comments leukocyte count, blood (test code = 68) 7.9 X10E3/UL 3.4-10.8 [facility] SPINE CERVICAL [id number] 15:02:00 [place] [address] Patient Name: LAURA LUX MR #: [id number] : 1960 Age/Sex: 57/F Req #: [id number] Adm Physician: Ordered by: RONNIE MATA MD Report #: [id number] Location: MRI Room/Bed: Procedure: [id number] MRI/M RI SPINE CERVICAL WO Exam Date: Exam Time: REPORT STATUS: Signed Exam: Cervical sp ine MRI without IV contrast History: Chronic neck pain Comparison studies: C ervical spine MRI 03/25/2017, 05/13/2015 and 12/11/2013. Technique: Sagitta l and axial T1 and T2, sagittal STIR and axial T2*GRE. Intravenous contrast: N one Findings: Alignment: Normal lordosis. No scoliosis. Cervicomedu llary junction: No abnormalities. Patent foramen magnum. Soft tissues: No T2 hyperintense inflammatory changes. Spinal cord: Cord is focally compressed at C6-C7 due to degenerative canal stenosis as described below with persistent in creased T2 signal changes in the cord from C5 to approximately mid C7, unchang ed from 03/25/2017. Vertebrae: No fractures, infection or neoplasm. Degenerative changes: C2-C3: Mildly degenerated disc. Bilateral facet art hrosis with right facet fusion. No significant foraminal stenosis. Patent dennis l. C3-C4: Mildly degenerated disc. Disc osteophyte complex, thickened lig amentum flavum, uncovertebral arthrosis and facet arthrosis with moderate dennis l stenosis and severe left and mild right foraminal stenosis. C4-C5: Mi ldly degenerated disc. Disc osteophyte complex, thickened ligamentum flavum, u ncovertebral arthrosis and facet arthrosis with mild to moderate canal stenosi s and severe left and mild right foraminal stenosis. C5-C6: Moderately de generated disc with mild reactive degenerative endplate edema. Disc osteophyte complex, uncovertebral arthrosis and facet arthrosis with mild to moderate ca nal canal stenosis and moderate left and mild right foraminal stenosis. C 6-C7: Moderately degenerated disc with mild reactive degenerative endplate yudith ma. There is ossification of the posterior longitudinal ligament superior to t he disc space which in combination with disc osteophyte complex, 5 mm central disc extrusion and thickened ligamentum flavum result in severe canal stenosis and cord compression. Uncovertebral facet arthrosis result in severe bilateral foraminal stenosis. C7-T1: Mild bilateral facet arthrosis. Patent canal and foramina. Incidental findings: Chronic inflammatory changes at the right mastoid tip. IMPRESSION: No significant changes from the prior cervical spine MRI of 03/25/2017. 1. Multilevel disc degeneration, worse/mod erate at C5-C6 and at C6-C7. 2. Persistent severe degenerative canal stenosis and cord compression at C6-C7 where there is a central disc extrusion and OPLL superior to the disc space with associated chronic cord signal changes. 3. Moderate degenerative canal stenosis at C3-C4 and mild to moderate canal milan nosis at C4-C5 and at C5-C6. 4. Multilevel degenerative foraminal stenosis; s evere left at C3-C4 and at C4-C5, moderate left at C5-C6 and severe bilaterall y at C6-C7. Signed by: Dr. Catalina Lobo M.D. on 03/29/2018 3:22 PM D ictated By: CATALINA LOBO MD 152 Transcribed By: MAGDALENO on 03/29/18 1522 COPY TO: RONNIE MATA MD prothrombin time (patient)2017-05-28 14:12:00* Test Item Value Reference Range Interpretation Comments prothrombin time (patient) (test code = 50) 10.0 s 9.1-12.0 [facility]2017-[facility]-28 14:12:00* Test Item Value Reference Range Interpretation Comments international normalized ratio (INR) (test code = 309) 1.0 0.8-1.2 [facility] aminotransferase (SGPT), [id number] 14:12:00 * Test Item Value Reference Range Interpretation Comments alanine aminotransferase (SGPT), serum (test code = 40) 11 1/L 0-32 [facility]partate aminotransferase (SGOT), [id number] 14:12:00* Test Item Value Reference Range Interpretation Comments aspartate aminotransferase (SGOT), serum (test code = 39) 17 1/L 0-40 [facility]aline phosphatase, [id number] 14:12:00* Test Item Value Reference Range Interpretation Comments alkaline phosphatase, serum (test code = 3) 95 1/L 39-117 [facility]irubin, serum, [id number] 14:12:00* Test Item Value Reference Range Interpretation Comments bilirubin, serum, total (test code = 43) 0.3 mg/dL 0.0-1.2 [facility]albumin/globulin ratio, [id number] 14:12:00* Test Item Value Reference Range Interpretation Comments albumin/globulin ratio, serum (test code = 146) 1.3 1.2-2. 2 [facility]globulin, [id number] 14:12:00* Test Item Value Reference Range Interpretation Comments globulin, serum (test code = 3059) 3.2 1.5-4.5 [facility] Healthalbumin, [id number] 14:12:00* Test Item Value Reference Range Interpretation Comments albumin, serum (test code = 2) 4.0 g/dL 3.5-5.5 [facility]protein, total, [id number] 14:12:00* Test Item Value Reference Range Interpretation Comments protein, total, serum (test code = 36) 7.2 g/dL 6.0-8.5 [facility]calcium, [id number] 14:12:00* Test Item Value Reference Range Interpretation Comments calcium, serum (test code = 11) 9.3 mg/dL 8.7-10.2 [facility]carbon dioxide, venous [id number] 14:12:00* Test Item Value Reference Range Interpretation Comments carbon dioxide, venous blood (test code = 15) 26 mmol/L 18-29 [facility]okechloride, [id number] 14:12:00* Test Item Value Reference Range Interpretation Comments chloride, serum (test code = 13) 100 mmol/L 96-106 [facility]okepotassium, [id number] 14:12:00* Test Item Value Reference Range Interpretation Comments potassium, serum (test code = 35) 4.6 mmol/L 3.5-5.2 [facility]okesodium, [id number] 14:12:00* Test Item Value Reference Range Interpretation Comments sodium, serum (test code = 159) 142 mmol/L 134-144 [facility]okeurea nitrogen/creatinine ratio, [id number] 14:12:00 * Test Item Value Reference Range Interpretation Comments urea nitrogen/creatinine ratio, serum (test code = 2462) 21 9-23 [facility] HealtheGFR if [id number] 14:12:00* Test Item Value Reference Range Interpretation Comments eGFR if (test code = 893874) 99 mL/min/((173/100). m2) >59 [facility]okeEstimated Glomerular Filtration Rate (calc)2017-05-28 14:12:00* Test Item Value Reference Range Interpretation Comments Estimated Glomerular Filtration Rate (calc) (test code = 72646) 86 mL/min/((173/100).m2) >59 [facility]okecreatinine, [id number] 14:12:00* Test Item Value Reference Range Interpretation Comments creatinine, serum (test code = 18) 0.78 mg/dL 0.57-1.00 [facility]okeurea nitrogen, [id number] 14:12:00* Test Item Value Reference Range Interpretation Comments urea nitrogen, blood (test code = 9) 16 mg/dL 6-24 [facility]okeblood glucose, [id number] 14:12:00* Test Item Value Reference Range Interpretation Comments blood glucose, random (test code = 8) 144 mg/dL 65-99 H [facility] Hokeimmature granulocytes, percentage of total cells, blood 2017-05-28 14:12:00* Test Item Value Reference Range Interpretation Comments immature granulocytes, percentage of total cells, bloo d (test code = 901194) 0 % [facility]okebasophil count, [id number] 14:12:00* Test Item Value Reference Range Interpretation Comments basophil count, absolute (test code = 86740) 0.0 x10E3/uL 0.0-0.2 [facility] HokeEosinophil Absolute [id number] 14:12:00* Test Item Value Reference Range Interpretation Comments Eosinophil Absolute Count (test code = 305603) 0.4 X10E3/UL 0.0-0.4 [facility] Hokemonocyte count, blood, [id number] 14:12:00* Test Item Value Reference Range Interpretation Comments monocyte count, blood, automated (test code = 3076) 0.4 X10E3/UL 0. 1-0.9 [facility] Hokelymphocyte count, blood, [id number] 14:12:00* Test Item Value Reference Range Interpretation Comments lymphocyte count, blood, automated (test code = 3074) 2.2 X10E3/UL 0.7-3.1 [facility] HokeAbsolute [id number] 14:12:00* Test Item Value Reference Range Interpretation Comments Absolute Neutrophils (test code = 46227) 3.4 X10E3/UL 1.4-7.0 [facility]okebasophils as percent of blood [id number] 14:12:00* Test Item Value Reference Range Interpretation Comments basophils as percent of blood leukocytes (test code = 2426) 0 % [facility] Healtheosinophils as percent of blood [id number] 14:12:00* Test Item Value Reference Range Interpretation Comments eosinophils as percent of blood leukocytes (test code = 4170) 7 % [facility] Healthmonocytes as percent of blood [id number] 14:12:00* Test Item Value Reference Range Interpretation Comments monocytes as percent of blood leukocytes (test code = 2421) 6 % [facility] Hokelymphocytes as percent of blood [id number] 14:12:00* Test Item Value Reference Range Interpretation Comments lymphocytes as percent of blood leukocytes (test code = 317) 34 % [facility] Hokeneutrophils as percent of blood [id number] 14:12:00* Test Item Value Reference Range Interpretation Comments neutrophils as percent of blood leukocytes (test code = 316) 53 % [facility] Hokeplatelet [id number] 14:12:00* Test Item Value Reference Range Interpretation Comments platelet count (test code = 66) 225 X10E3/UL 150-379 [facility] Hokered blood cell distribution [id number] 14:12:00* Test Item Value Reference Range Interpretation Comments red blood cell distribution width (test code = 1030) 15.4 % 1 2.3-15.4 [facility] corpuscular hemoglobin concentration, [id number] 14:12:00* Test Item Value Reference Range Interpretation Comments mean corpuscular hemoglobin concentration, RBC (test code = 1029) 32.0 G/DL 31.5-35.7 [facility] corpuscular hemoglobin, [id number] 14:12:00* Test Item Value Reference Range Interpretation Comments mean corpuscular hemoglobin, RBC (test code = 1031) 26.8 pg 26 .6-33.0 [facility] corpuscular volume, [id number] 14:12:00* Test Item Value Reference Range Interpretation Comments mean corpuscular volume, RBC (test code = 315) 84 fL 79-97 [facility]okehematocrit, [id number] 14:12:00* Test Item Value Reference Range Interpretation Comments hematocrit, blood (test code = 64) 35.6 % 34.0-46.6 [facility]okehemoglobin, [id number] 14:12:00* Test Item Value Reference Range Interpretation Comments hemoglobin, blood (test code = 65) 11.4 g/dL 11.1-15.9 [facility]okeerythrocyte (RBC) [id number] 14:12:00* Test Item Value Reference Range Interpretation Comments erythrocyte (RBC) count (test code = 67) 4.26 X10E6/UL 3.77-5.28 [facility]okeleukocyte count, [id number] 14:12:00* Test Item Value Reference Range Interpretation Comments leukocyte count, blood (test code = 68) 6.4 X10E3/UL 3.4-10.8 [facility] [place] [address] Patient Name: LAURA LUX MR #: [id number] : 1960 Age/Sex: 56/F Req #: [id number] Adm Physician: Ordered by: RONNIE MATA MD Report #: [id number] Location: MRI Room/Bed: Procedure: [id number] MRI/MRI SPINE CERVICAL WO Exam Date: Exam Time: REPORT STATUS: Signed EX AMINATION: MRI of the cervical spine without contrast HISTORY: Cervical s sanchez canal stenoses, numbness in the upper extremities/hands for over a year COMPARISON: Cervical spine MRI and 05/13/2015 TECHNIQUE: Sagittal T1, T2, STI R; axial T2, gradient echo. FINDINGS: Curvature: Normal lordosis. Vertebrae: No evidence of neoplasm, infection, or fracture. Foramen magnum: No mass, Chiari malformation, or basilar invagination. Spinal Cord: Subtle in creased T2 signal intensity within the cord extending from superior endplate o f C5 to mid C7 due to severe canal stenosis and chronic cord compression, wors ened since prior MRI and 05/13/2015 Soft Tissues: Unremarkable. Degenerati ve changes: C1-C2: Mild degenerative changes without stenoses C2-C3: Bilateral facet arthrosis without significant stenoses. Fusion of the posterior elements on the right side. C3-C4: Disc osteophyte, uncover tebral and facet arthrosis. Moderate spinal canal and severe left foraminal st enosis. Mild right foraminal stenoses C4-C5: Disc was 25 compare forma tion, bilateral uncovertebral and facet arthrosis. Mild spinal canal, mild rig ht and severe left foraminal stenoses C5-C6: Disc osteophyte complex f ormation, bilateral uncovertebral and facet arthrosis. Moderate spinal canal a nd moderate bilateral foraminal stenoses C6-C7: Disc osteophyte comp ronak formation and new approximately 5 mm AP diameter central disc protrusion, which results in severe spinal canal stenoses and or compression. Additio nal bilateral uncovertebral and facet arthrosis results in severe bilateral fo raminal stenoses. C7-T1: Mild symmetric disc bulge and facet arthrosis without significant stenoses. IMPRESSION: 1. Worsening severe spin al canal stenoses at C6-C7 due to degenerative changes and new disc herniation with likely chronic cord compression and increased signal within the cord, wh ich likely explains the patient's symptoms. A neurosurgery or orthopedic consu lt is advised. 2. Persistent severe degenerative bilateral foraminal steno sis at C6-7. 3. Mild to moderate degenerative spinal canal stenosis at C3- C4, C4-C5 and C5-C6. 4. Severe degenerative foraminal stenosis on the le ft at C3-C4 and C4-C5 and moderate bilaterally at C5-C6. Signed by: Dr. Matt Morton M.D. on 03/25/2017 12:40 PM Dictated By: RUKHSANA MORTON MD Electr onically Signed By: RUKHSANA MORTON MD on 03/25/17 1240 Transcribed By: MAGDALENO on 03/25/17 1240 COPY TO: RONNIE MATA MD
--- OUTSIDE RECORDS SUMMARY | 2019-10-01 12:04 | XMS REPORT | Clinical Summary ---
Author Author [facility] ict Organization [facility] ict Address Unknown Phone Unavailable Care Team Providers Care Perch Mender Name Role Phone PCP Unavailable Allergies Comments Active Allergy Reactions Severity Noted Date dizziness Ondansetron Hcl (Pf) Nausea and 11/21/2008 Vomiting Medications End Date Status Medication Sig Dispensed Refills Start Date Active HYDROcodone-acetaminophen Take 1 tablet 30 tablet 5 (NORCO) 5-325 mg by mouth 3 tabletIndications: every 4 hours Osteomyelitis as needed for Pain. Active blood glucose Use as 1 Kit 0 meterIndications: DM directed. 3 (diabetes mellitus) Active CAPSAICIN 0.025 % topical Apply up to 4 60 g 6 creamIndications: times day. 4 Diabetic foot ulcer, Diabetic neuropathy Active pramipexole (MIRAPEX) Take 1 tablet 90 tablet 4 0.125 mg by mouth at 4 tabletIndications: bedtime. Diabetic neuropathy Active Cadexomer Iodine Apply to 40 g 4 (IODOSORB) 0.9 % topical affected area 4 gelIndications: Diabetic daily as foot ulcer needed for Wound Care. Active gemfibrozil (LOPID) 600 Take 1 tablet 180 tablet 3 mg tabletIndications: HLD by mouth 2 4 (hyperlipidemia) times daily (before meals). Active ergocalciferol (VITAMIN Take 1 12 capsule 0 D2) 50,000 unit capsule by 4 capsuleIndications: mouth weekly. Vitamin D deficiency Active blood glucose test Check BG 4 3 Box 11 03/07/ 01 stripsIndications: DM times weekly. 4 (diabetes mellitus) Active omeprazole (PRILOSEC) 20 Take 2 360 capsule 3 0 mg delayed release capsules by 4 capsuleIndications: GERD mouth 2 times (gastroesophageal reflux daily. disease) Active gabapentin (NEURONTIN) 1 po tid. 270 capsule 3 300 mg 4 capsuleIndications: Diabetic neuropathy Active lisinopril (PRINIVIL, Take 1 tablet 90 tablet 3 ZESTRIL) 20 mg by mouth 4 tabletIndications: HTN daily. (hypertension) Active simvastatin (ZOCOR) 20 mg Take 1 tablet 90 tablet 3 tabletIndications: HLD by mouth at 4 (hyperlipidemia) bedtime. Active furosemide (LASIX) 20 mg Take 1 tablet 90 tablet 3 tabletIndications: Edema by mouth 4 daily. Active LANCETSIndications: Use as 1 Box 10 Uncontrolled type II Directed. 4 diabetes mellitus Active blood glucose test Use as 1 Box (PRECISION XTRA TEST directed.. 4 STRIPS) stripsIndications: Uncontrolled type II diabetes mellitus Active glyBURIDE-metFORMIN Take 2 360 tablet 3 (GLUCOVANCE) 5-500 mg per tablets by 4 tabletIndications: DM mouth 2 times (diabetes mellitus) daily (with meals). Active nortriptyline (PAMELOR) Take 1 30 capsule 5 25 mg capsuleIndications: capsule by 4 Diabetic neuropathy mouth at bedtime nightly. Active insulin needles, Inject 4 10 Box 3 disposable, (NOVOFINE) 30 Syringes 4 x 1/3 " under the needlesIndications: DM skin daily (diabetes mellitus), type Inject 2, uncontrolled subcutaneousl y. Twice daily. Active acetaminophen-codeine Take 1 tablet 30 tablet 0 (TYLENOL #3) 300-30 mg by mouth 4 per tabletIndications: every 4 hours Diabetic foot ulcer with as needed for osteomyelitis Pain. Active Cadexomer Iodine Apply to 40 g 0 (IODOSORB) 0.9 % topical affected area 4 gelIndications: Diabetic daily as foot ulcer needed for Wound Care. Active Insulin REGULAR Use 43 units 3 Month 0 CONCENTRATED (HUMULIN R in am and 40 Supply 4 CONCENTRATED) 500 unit/mL units at injection night. Active rifampin (RIFADIN) 300 mg Take 2 60 capsule 2 capsuleIndications: capsules by 5 Chronic osteomyelitis of mouth daily. foot Active insulin lispro (HUMALOG) Inject 20 0 100 unit/mL injection Units under the skin 3 times daily. Active insulin glargine (LANTUS) Inject 60 0 100 unit/mL injection Units under the skin at bedtime nightly. Active metFORMIN (GLUCOPHAGE) Take 1,000 mg 0 500 mg tablet by mouth 2 times daily (with meals). Active Miscellaneous Medical Patient 1 Each 0 07/23 Supply MiscIndications: needing 5 Wound, open, foot with motorized complication scooter for mobility as she is to take weight off her right foot with non healing ulcer. Active mupirocin (BACTROBAN) 2 % Apply a small 30 g 5 ointmentIndications: amount to 5 Diabetic foot ulcer wound daily and cover with gauze. Active Problems Problem Noted Date Migraine with aura, without mention of intractable mi graine without mention 04/30/2014 of status migrainosus Type II or unspecified type diabetes mellitus with op hthalmic 04/30/2014 manifestations, not stated as uncontrol led(250.50) Status post amputation of toe of right foot 03/13/19 13 Diabetic retinopathy 03/05/2012 Traumatic amputation of toe(s) (complete) (partial), without mention of 03/05/2012 complication Occluded PICC line 02/16/2012 Diabetes mellitus with ulcer of toe 01/19/2012 Type II or unspecified type diabetes mellitus with ne urological 01/09/2012 manifestations, uncontrolled(250.62) Osteomyelitis of foot 01/06/2012 S/P PICC central line placement 01/05/2012 Wound, open, foot with complication 12/30/2011 Avascular necrosis 06/19/2011 Charcot foot due to diabetes mellitus 12/26/2010 Diabetic neuropathy 06/13/2010 Diabetic foot ulcer 06/13/2010 Uterine cancer 11/21/2008 Overview: Diagnosed at outside institution..stage unclear Personal history of ovarian cancer 11/21/2008 Overview: Diagnosed outside institution...stage u nclear Tobacco use disorder 11/21/2008 HTN (hypertension) Obesity Nausea & vomiting Overview: CT= Immunizations Name Administration Dates Next Due Influenza Vaccine 10/24/2011, 11/16/2010, 02/2008 PPV 23 Pneumococcal 01/22/2008 Polysaccaride Td Tetanus, diphtheria 11/21/2005 Toxoids Vaccine Family History Medical History Relation Name Comments Diabetes Brother Diabetes Father Heart Father Hypertension Father Cancer Maternal cervical Grandmother Diabetes Mother Heart Mother Hypertension Mother Stroke Mother Relation Name Status Comments Brother Alive 4 Brother Father Congestive heart fa ilure, kidney failure (Age 77+) Maternal Grandmother Mother Alive Sister Alive 4 Social History Date Tobacco Use Types Packs/Day Years Used Current Every Day Smoker Cigarettes 0.5 35 Smokeless Tobacco: Never Used Tobacco Cessation: Ready to Quit: No; Co unseling Given: Yes Comments: STARTED SMOKING AT 10YEARS OF AGE decreased 1/2ppd X 05/31, from 2-3ppd Drinks/Week oz/Week Comments Alcohol Use No Sex Assigned at Date Recorded Not on file Industry Job Start Date Occupation Not on file Not on file Not on file Travel End Travel History Travel Start No recent travel history available. Last Filed Vital Signs Not on file Plan of Treatment Health Maintenance Due Date Last Done Comments DM Foot Exam (Yearly) 08/05/2013 08/05/2012, 12/25/2011 Breast Cancer Scrn 11/07/2013 11/07/2012, (Yearly) 05/26/2011, 02/01/2009 DM HGBA1C (Yearly) 04/27/2014 04/27/2013, 11/26/2012, 09/03/2012, Additional history exists DM Retinal Exam (Yearly) 05/01/2015 04/30/2014, 10/02/2013, 11/28/2012, Additional history exists Colonoscopy 10yr 04/23/2019 04/22/2009 Results Not on fileafter 09/30/2018 Insurance Type Payer Benefit Subscriber ID Effective Phone Address Plan / Dates Group [facility] xxxxxxxxx 2013-P [phone] [address] MEDICARE resent [id number] [place] [address] [facility] xxxxxxxxx 2013-P [phone] [address] [employer] resent [id number] [place] [address] [facility] [employer] xxxxxxxxx 2014-P [phone] [address] [place] [address] Advance Directives Date Inactivated Comments Code Status Date Activated 03/05/2012 1:26 PM Full Code 02/29/2012 12:21 PM 01/11/2012 7:41 PM Full Code 01/05/2012 10:14 AM
[2019-10-01] MEDS ORDERED: HYDROCODONE/APAP 7.5MG-325MG 1 EA TAB PO ONE (13:00)
--- NOTE | 2019-10-01 13:01 | Diagnostic Imaging Report ---
Left complete knee. CPT CODE: 85281. INDICATION: ^FALL COMPARISON: None FINDINGS: No evidence of acute fracture or dislocation. Mild to moderate degenerative changes of the medial, lateral, patellofemoral compartments. No joint effusion. Diffuse atherosclerotic calcifications. IMPRESSION: No acute traumatic pathology. Mild to moderate degenerative changes of the knee. Signed by: Dr. Kun Iraheta MD on 10/01/2019 12:57 PM
--- NOTE | 2019-10-01 13:02 | Diagnostic Imaging Report ---
Hip complete Indication: ^FALL Technique: AP and frogleg views of right hip obtained. Comparison: None Findings: Right hip remains properly located. The cortex appears intact throughout. Trochanters appear intact. Minimal spurring evident from the superior acetabulum. Adjacent pubic rami appear intact. Lower lumbar spine demonstrates degenerative changes. Vascular calcifications in the pelvis and proximal lower extremities. There are surgical clips throughout the pelvis and along the lower lumbar spine. IMPRESSION: Right hip properly located. No convincing evidence for fracture. Signed by: Dr. Kun Iraheta MD on 10/01/2019 12:59 PM
[2019-10-01 13:12] VITALS: BP 153/68
--- NOTE | 2019-10-01 13:15 | Emergency Department Note ---
History of Present Illnes History of Present Illness Chief Complaint: Extremity Trauma/Pain History of Present Illness This is a 59 year old female 59 Y/O FEMALE PT PRESENTS TO ED WITH REPORT OF FALL AT [facility]; PT REPORTS PAIN TO LEFT KNEE AND RIGHT HIP; NO OBVIOUS DEFORMITY NOTED. 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 Any updates have been documented here. Past Medical History Recent Fever: No Clinical Suspicion of Infectio: No New/Unexplained Change in Ment: No Past Medical History: Hypertension, Diabetes, Cancer, Hyperlipedemia Other Medical History: Parkinson's, Spinal stenosis, Neuropathy, Ovarian and Urterine cancer, HLD Other Surgery: Toe amputation, ear surgery Social History Smoking Cessation: Never Smoker Counseling Performed: No Alcohol Use: None Any Illegal Drug Use: No TB Exposure/Symptoms: No Physically hurt or threatened: No Family History Family history of heart diseas: Yes Other Last Tetanus: UTD Any Pre-Existing Lines (PICC,: No Review of Systems Review of Systems Constitutional: Reports no symptoms EENTM: Reports no symptoms Cardiovascular: Reports no symptoms Respiratory: Reports no symptoms Gastrointestinal: Reports no symptoms Genitourinary: Reports no symptoms Musculoskeletal: Reports as per HPI Integumentary: Reports no symptoms Neurological: Reports no symptoms Psychological: Reports no symptoms Endocrine: Reports no symptoms Hematological/Lymphatic: Reports no symptoms Physical Exam Related Data Allergies: Coded Allergies: [email or web address] (Verified Allergy, Intermediate, HALLUCINATIONS, 09/09/14) Triage Vital Signs Vital Signs Date Time Temp Pulse Resp B/P (MAP) Pulse Ox O2 Delivery O2 Flow Rate FiO2 10/01/19 11:59 98.1 64 15 171/75 97 Room Air Vital signs reviewed: Yes Physical Exam CONSTITUTIONAL Constitutional: Present well-developed, Present well-nourished HENT HENT: Present normocephalic, Present atraumatic, Present oropharynx clear/moist, Present nose normal HENT L/R: Present left ext ear normal, Present right ext ear normal EYES Eyes: Reports PERRL, Reports conjunctivae normal NECK Neck: Present ROM normal PULMONARY Pulmonary: Present effort normal, Present breath sounds normal CARDIOVASCULAR Cardiovascular: Present regular rhythm, Present heart sounds normal, Present capillary refill normal, Present normal rate GASTROINTESTINAL Abdominal: Present soft, Present nontender, Present bowel sounds normal GENITOURINARY Genitourinary: Present exam deferred SKIN Skin: Present warm, Present dry MUSCULOSKELETAL Musculoskeletal: Present tenderness (moderate tenderness anterior left knee, no deformity, no ligament instability. Mild tenderness right hip, pelvis stable) NEUROLOGICAL Neurological: Present alert, Present oriented x 3, Present no gross motor or sensory deficits PSYCHOLOGICAL Psychological: Present mood/affect normal, Present judgement normal Results Imaging Imaging results reviewed: Yes Assessment & Plan Medical Decision Making MDM fall, c/o left knee and right hip pain - check xray r/o fracture Reassessment Reassessment xrays normal, pt feels better. On Tx PMPAware, pt has recently had [place] 5, Diazepam, and Ambien filled. Recommend REM[facility]IOS F/U PCP and Ortho Assessment & Plan Final Impression: (1) Fall (2) Multiple contusions Depart Disposition: HOME, SELF-CARE Last Vital Signs Date Time Temp Pulse Resp B/P (MAP) Pulse Ox O2 Delivery O2 Flow Rate FiO2 10/01/19 12:07 99.0 84 18 153/68 97 Room Air Home Meds Reported Medications Sulfamethoxazole/Trimethoprim (BACTRIM DS TABLET) 1 Each Tablet, 1 TAB PO BID, #60 TAB 09/06/14 Ciprofloxacin Hcl (CIPRO) 500 Mg Tablet, 500 MG PO Q12H, #30 TAB 09/06/14 Insulin Glargine (LANTUS) 100 Units/Ml Ml, 60 UNIT SC HS 09/05/14 Insulin Lispro (HUMALOG) 100 Unit/1 Ml Cartridge 09/05/14 Meloxicam (MELOXICAM) 15 Mg Tablet, 15 MG PO BEDTIME 09/05/14 Losartan Potassium (LOSARTAN POTASSIUM) 25 Mg Tablet, 25 MG PO DAILY 09/05/14 Amoxicillin/Potassium Clav (AMOX TR-K CLV 875-125 MG TAB) 1 Each Tablet, PO BID 09/05/14 Pramipexole Di-Hcl (MIRAPEX) 0.125 Mg Tablet, 0.125 MG PO HS 09/05/14 Metformin Hcl (METFORMIN HCL) 500 Mg Tablet, 500 MG PO BID, #60 TAB 09/05/14 Rifampin (RIFAMPIN) 300 Mg Capsule, 300 MG PO DAILY, CAP 09/05/14 Simvastatin (SIMVASTATIN) 20 Mg Tablet, 20 MG PO HS, EA 09/05/14 Gabapentin (GABAPENTIN) 400 Mg Capsule, 800 MG PO BID, #30 CAP 09/05/14 Medications in the ED Acetaminophen/ Hydrocodone Bitart 1 ea NOW ONCE PO ; Start 10/01/19 at 13:00; Stop 10/01/19 at 13:06; Status DC VAISHALI SANCHEZ MD Oct 01, 2019 13:15
[2019-10-01] MEDS ORDERED: ACETAMINOPHEN/CODEINE 300MG - 30MG TAB PO ONE (13:30)
== END 2019-10-01 13:37 | disposition home or self-care (01) ==
LOC: ER 12:00
DX: M25.562 Pain in left knee (principal); M25.551 Pain in right hip; S80.02XA Contusion of left knee, initial encounter; S70.01XA Contusion of right hip, initial encounter; W18.30XA Fall on same level, unspecified, initial encounter; Y92.512 Supermarket, store or market as the place of occurrence of the external cause
CPT/HCPCS: 99283

== ENCOUNTER → 2019-11-03 | Outpatient (CLI) | payer MEDICARE, OTHER ==
--- NOTE | 2019-11-03 13:05 | Diagnostic Imaging Report ---
Radiographs of the left and right knee - 2 views each knee HISTORY: Pain COMPARISON: None available. FINDINGS: Bones: No acute displaced fracture. Osseous alignment is within normal limits. Joints: Moderate tricompartmental degenerative arthrosis most pronounced in the left medial compartment with joint space narrowing and peripheral osteophytosis. No osseous erosion. Soft tissues: Scattered vascular calcification IMPRESSION: Moderate tricompartmental degenerative arthrosis most pronounced in the left medial compartment with joint space narrowing and peripheral osteophytosis. No osseous erosion. Signed by: Dr. Hemal Curtis M.D. on 11/03/2019 1:02 PM
== END ==
LOC: RAD 12:06
PROVIDERS: ATTEND Psychiatry & Neurology Clinical Neurophysiology
DX: S89.92XA Unspecified injury of left lower leg, initial encounter (principal); S83.281A Other tear of lateral meniscus, current injury, right knee, initial encounter